=== PATIENT | female | born 1980 | race African-American/Black ===

== ENCOUNTER → 2018-12-23 | Outpatient (CLI) | payer OTHER ==
[~2018-12-23] MED LIST: BUSP10TA PO; FLUO20CA8 PO; GIAN1TAB PO; MULT1CHW29 PO
--- NOTE | 2018-12-23 10:44 | REPMRS ---
Patient History The patient states she has not had a clinical breast exam in over a year. Family history of unknown cancer in maternal grandmother. Taking hormonal contraceptives for 10 years. Patient being seen at [facility] for anemia and enlarged lymph nodes around her heart(per patient). Digital Mammo Screening Bilat: December 23, 2018 - Exam #: [id number] Bilateral CC and MLO view(s) were taken. Technologist: Ingris Haskins, Technologist No prior studies available for comparison. FINDINGS: There are scattered fibroglandular densities. There has been no change in the appearance of the mammogram from the prior studies. There is a mild amount of scattered fibroglandular density which is fairly symmetric. There is no interval development of dominant mass, architectural distortion, or grouped microcalcification suggestive of malignancy. Assessment: BI-RADS/ACR category 1 mammogram. Negative Mammogram. Recommendation Routine screening mammogram of both breasts in 1 year (for women over age 40). This patient's Lifetime Breast Cancer Risk is estimated at 9.8 %. This mammogram was interpreted with the aid of an FDA-approved computer-aided dectection system. Electronically Signed By: Douglas Haile MD 12/23/18 [id number]
== END ==
LOC: M RAD 07:32
PROVIDERS: ATTEND Internal Medicine
DX: Z12.31 Encounter for screening mammogram for malignant neoplasm of breast (principal)

== ENCOUNTER → 2019-01-19 | Outpatient (CLI) | payer OTHER ==
[~2019-01-19] MED LIST changes: +DIPH25TA PO
[2019-01-19 17:48] LABS: ALBUMIN 3.6 GM/DL (3.2-5.2); ALT/SGPT 41 U/L (12-78); BILIRUBIN,DIRECT 0.2 MG/DL (0.0-0.2); BILIRUBIN,TOTAL 0.4 MG/DL (0.2-1.0); BLOOD UREA NITROGEN 8 MG/DL (7-18); CALCIUM LEVEL 9.3 MG/DL (8.5-10.1); CREATININE FOR GFR 0.83 MG/DL (0.55-1.30); GLOMERULAR FILTRATION RATE > 60.0 (>58); TOTAL 25(OH) VITAMIN D 35.4 NG/ML (30.0-100.0); TOTAL PROTEIN 7.5 GM/DL (6.4-8.2)
[2019-01-19 17:57] LABS: BASO % 0.8 % (0.0-1.0); EOS # 0.1 10^3/uL (0.0-0.5); EOS % 1.9 % (0.0-3.0); HEMATOCRIT 34.9 % (36.0-47.0); HEMOGLOBIN 10.7 g/dl (12.0-15.5); LYMPH # 1.8 10^3/uL (1.5-5.0); LYMPH % 34.5 % (24.0-44.0); MEAN CORPUSCULAR HEMOGLOBIN 23.9 pg (27.0-33.0); MEAN CORPUSCULAR HGB CONC 30.7 g/dl (32.0-36.5); MEAN CORPUSCULAR VOLUME 78.1 fl (80.0-96.0); MONO # 0.4 10^3/uL (0.0-0.8); NEUTROPHILS # 2.9 10^3/uL (1.5-8.5); NEUTROPHILS % 54.4 % (36.0-66.0); PLATELET COUNT, AUTOMATED 382 10^3/uL (150-450); RED BLOOD COUNT 4.47 10^6/uL (4.00-5.40); WHITE BLOOD COUNT 5.3 10^3/uL (4.0-10.0)
[2019-01-22 14:10] LABS: VITAMIN D 1,25 DIHYDROXY 96.3 pg/mL (19.9-79.3)
== END ==
LOC: M SMT 13:16
PROVIDERS: ATTEND Internal Medicine Pulmonary Disease
DX: R59.0 Localized enlarged lymph nodes (principal)

== ENCOUNTER → 2019-01-26 | Outpatient (CLI) | payer OTHER ==
[~2019-01-26] MED LIST changes: +FLUO20CA20 PO; -FLUO20CA8 PO; +ISOVUE-370 76% 100ML VIAL (Q9967) As Ordered ONE
--- NOTE | 2019-01-27 07:00 | REP ---
Clinical: Adenopathy. Follow-up. Technique: Axial contrast enhanced images from the thoracic inlet to the upper abdomen with coronal and sagittal re-formations using 100 ml Isovue 370 intravenous contrast material. Comparison: 11/06/2018 (outside examination). Findings: Mediastinal and bilateral hilar adenopathy multiple lymph nodes measuring up to 1.8 cm short axis diameter are unchanged. The bilateral lung carrillo demonstrate subtle interstitial/alveolar infiltrate in the bilateral lung bases which remain stable. No new area of consolidation or effusion noted. Tracheobronchial tree is patent. Heart and pericardium appear normal. Surrounding musculoskeletal structures are intact. Impression: Mediastinal and hilar adenopathy along with subtle reticular nodular/alveolar infiltrates at the bilateral lung bases remain unchanged. Differential diagnosis includes but is not limited to lymphoma as well as bronchoalveolar carcinoma and infectious/inflammatory processes. Pulmonary consultation and PET-CT should be considered for further investigation. Electronically Signed by Donell Don MD 01/27/2019 06:52 A
== END ==
LOC: M RAD 09:03
PROVIDERS: ATTEND Internal Medicine Pulmonary Disease
DX: R59.0 Localized enlarged lymph nodes (principal)
CPT/HCPCS: 71260; Q9967

== ENCOUNTER 2019-01-29 05:49 | Day surgery (SDC) | payer OTHER ==
[~2019-01-29] VITALS: Ht 162.6 cm; Wt 61.1 kg
[~2019-01-29 05:49] MED LIST changes: -FLUO20CA20 PO; +FLUO20CA8 PO; -ISOVUE-370 76% 100ML VIAL (Q9967) As Ordered ONE
[2019-01-29] MEDS ORDERED: LR 1,000 ML IV ONE (06:00)
[2019-01-29] MEDS ORDERED: LIDOCAINE 1% MDV 20ML VIAL SQ PRN (06:00)
[2019-01-29 06:48] LABS: URINE PREG TEST NEGATIVE (NEGATIVE)
[2019-01-29] MEDS ORDERED: CETACAINE SPRAY 5GM As Ordered ONE (06:51)
[2019-01-29] MEDS ORDERED: THROMBIN SOLN 20,000 UNITS KIT As Ordered ONE (06:51)
[2019-01-29] MEDS ORDERED: LIDOCAINE 1% SDV INJ 30 ML VIAL As Ordered ONE (06:52)
[2019-01-29] MEDS ORDERED: LIDOCAINE VISCOUS 2% SOLN 15ML UDC As Ordered ONE (06:52)
[2019-01-29] MEDS ORDERED: EPINEPHrine 1MG/10ML SYRINGE 1.5IN As Ordered ONE (06:52)
[2019-01-29] MEDS ORDERED: PROPOFOL 200 MG/20 ML VIAL As Ordered ONE (07:06)
[2019-01-29] MEDS ORDERED: dexameTHASONE 4 MG/ML 1ML VIAL (J1100) As Ordered ONE (07:06)
[2019-01-29] MEDS ORDERED: ONDANSETRON 4MG/2ML VIAL (J2405) As Ordered ONE (07:06)
[2019-01-29] MEDS ORDERED: LIDOCAINE 2% INJ 100 MG/5 ML SDV (FOR ANES.) As Ordered ONE (07:06)
[2019-01-29] MEDS ORDERED: ROCURONIUM BROMIDE 50 MG/5 ML VIAL As Ordered ONE (07:07)
[2019-01-29] MEDS ORDERED: MIDAZOLAM INJ 2 MG/2 ML VIAL (J2250) As Ordered ONE (07:07)
[2019-01-29] MEDS ORDERED: fentaNYL 100 MCG/2 ML INJECTION (J3010) As Ordered ONE (07:10)
[2019-01-29] MEDS ORDERED: PHENYLephrine HCL 500 MCG/5 ML (100MCG/ML) SYRINGE (J2370) As Ordered ONE (07:57)
[2019-01-29] MEDS ORDERED: GLYCOPYRROLATE INJ 0.2 MG/ML 2 ML VIAL As Ordered ONE (08:02)
[2019-01-29] MEDS ORDERED: NEOSTIGMINE 10 MG/10 ML VIAL (J2710) As Ordered ONE (08:02)
[2019-01-29] MEDS ORDERED: METOCLOPRAMIDE INJ 10MG/2ML VIAL (J2765) As Ordered ONE (08:14)
--- NOTE | 2019-01-29 08:42 | RO ---
DATE OF PROCEDURE: 01/29/2019 PREOPERATIVE DIAGNOSIS: Abnormal chest CT mediastinal and hilar adenopathy. POSTOPERATIVE DIAGNOSIS: Abnormal chest CT mediastinal and hilar adenopathy. Findings of a nodular airway. PROCEDURE: Bronchoscopy with endobronchial ultrasound fine-needle aspiration and endobronchial biopsy. SURGEON: Dr. Powell BARKER PEELER: Dr. Bond ANESTHESIA: General SPECIMENS OBTAINED: 1. Fine-needle aspiration (FNA) subcarinal node. 2. Endobronchial biopsy right middle lobe nodule. Pictures were taken. Estimated blood loss was minimal. No observed complications. DESCRIPTION OF PROCEDURE: After informed consent was reviewed with the patient in the preoperative area, she was brought back to operating room (OR) #2. Anesthesia was then initiated and the patient was intubated with an 8.5 endotracheal tube. The case was handed over to me. Time-out was performed with two patient identifiers identifying correct site, correct procedure. I then anesthetized the airway with Cetacaine. 1T190 bronchoscope was then inserted into the airway through the 8.5 endotracheal tube. Trachea was midline. Jo-Ann was full. There were no endotracheal lesions. The patient was right mainstem intubated and this was pulled back. I then examined the airways. Right bronchus (RB) 1-10 were studded with sarcoid nodules most prevalent in the lateral segment of the right middle lobe. Endobronchial biopsies was taken of this area. After adequate hemostasis, the bronchoscope was removed. Endobronchial ultrasound was inserted. Subcarinal area was viewed with multiple large lymph nodes in the subcarinal area. Under endobronchial ultrasound, fine-needle aspirations were obtained. After adequate sampling, hemostasis assured, endobronchial ultrasound was removed. IT190 bronchoscope was then reinserted. All airways were suctioned. Hemostasis assured and 1T190 bronchoscope was removed. Case was then handed over to anesthesia. No observed complications. Postprocedure chest x-ray is pending. Post-operative cxr reviewed, Continued adenopathy without evidence of pneumothorax. [facility]
[2019-01-29] MEDS ORDERED: ONDANSETRON 4MG/2ML VIAL (J2405) IV PRN (09:00)
[2019-01-29] MEDS ORDERED: oxyCODONE 5MG TAB PO PRN (09:00)
[2019-01-29] MEDS ORDERED: LR 1,000 ML IV SCH (09:00)
[2019-01-29] MEDS ORDERED: fentaNYL 100 MCG/2 ML INJECTION (J3010) IV PRN (09:00)
[2019-01-29 09:17] VITALS: BP 91/46
--- NOTE | 2019-01-29 09:19 | REP ---
CHEST, PORTABLE: AP portable view of the chest is performed. There is no pneumothorax. There is no consolidative infiltrate. Prominent hilar shadows are compatible with mild adenopathy as seen on recent chest CT 01/26/2019. The heart is normal in size. Electronically Signed by Sivakumar Cook MD 01/29/2019 05:32 P
== END 2019-01-29 10:29 | disposition home or self-care (01) ==
LOC: M SDC 05:49
PROVIDERS: ATTEND Internal Medicine Pulmonary Disease
DX: R59.0 Localized enlarged lymph nodes (principal); R91.8 Other nonspecific abnormal finding of lung field; D86.0 Sarcoidosis of lung; D55.0 Anemia due to glucose-6-phosphate dehydrogenase [G6PD] deficiency; D50.9 Iron deficiency anemia, unspecified; F41.9 Anxiety disorder, unspecified; F32.9 Major depressive disorder, single episode, unspecified; Z88.2 Allergy status to sulfonamides; Z88.5 Allergy status to narcotic agent; Z79.899 Other long term (current) drug therapy
CPT/HCPCS: 31625; 31652; 71045; 84703; 88173; 88305; 88312; 88313; J1100; J2250; J2370; J2405; J2710; J2765; J3010

== ENCOUNTER → 2021-03-03 | Outpatient (CLI) | payer OTHER ==
[~2021-03-03] MED LIST changes: -DIPH25TA PO; +FLUO20CA20 PO; -FLUO20CA8 PO; +RA S PO
--- NOTE | 2021-03-03 09:42 | REP ---
INDICATION: CHRONIC COUGH COMPARISON: 01/29/2019 TECHNIQUE: PA and lateral. FINDINGS: Diffuse right-sided airspace disease and subtle left infrahilar airspace disease consistent with multifocal pneumonia and correlation is required. No effusion. No pneumothorax. No obvious adenopathy. Cardiac silhouette is normal. Skeletal structures are intact. IMPRESSION: Multifocal pneumonia (right greater than left). <Electronically signed by Donell Don > 03/03/21 [id number]
== END ==
LOC: M RAD 09:22
PROVIDERS: ATTEND Internal Medicine Pulmonary Disease
DX: J18.9 Pneumonia, unspecified organism (principal)

== ENCOUNTER → 2021-03-07 | Outpatient (CLI) | payer OTHER ==
--- NOTE | 2021-03-07 11:49 | REP ---
INDICATION: SCARCOIDOSIS COMPARISON: 01/26/2019 the latest prior a contrast-enhanced exam TECHNIQUE: Standard helical technique without contrast FINDINGS: Mediastinal and hilar adenopathy is suspected although difficult to evaluate or compared to the prior contrast enhanced examination. There are no pleural or pericardial effusions. There is no significant change in the imaged upper abdomen or imaged osseous structures. Evaluation of the lung carrillo shows scattered reticulonodular densities diffusely seen throughout the lung carrillo but with right upper and right middle lobe predominance these densities are numerous and cannot be commented or individually assessed. IMPRESSION: Lung field findings and adenopathy consistent with the patient's diagnosis of sarcoidosis. Although the lung field findings have worsened the adenopathy may have improved particularly in the subcarinal region. <Electronically signed by Ishan Christie > 03/07/21 [id number]
== END ==
LOC: M RAD 10:45
PROVIDERS: ATTEND Internal Medicine Pulmonary Disease
DX: D86.2 Sarcoidosis of lung with sarcoidosis of lymph nodes (principal)